=== PATIENT | female | born 1955 | race Caucasian/White ===

== ENCOUNTER 2020-03-14 11:28 | Outpatient (REF) | payer BC, SELFPAY | END 2020-03-14 11:29 | disposition home or self-care (01) | LOC: HO.LAB 11:28 | PROVIDERS: Visit Provider Internal Medicine | DX: Z20.822 Contact with and (suspected) exposure to COVID-19 (principal) | CPT/HCPCS: 36415; C9803; U0003 ==

== ENCOUNTER 2020-09-10 16:14 | Outpatient (REF) | payer BC, SELFPAY ==
--- NOTE | ~2020-09-10 | MM_ITS ---
EXAMINATION: MM SCREENING DIGITAL BREAST TOMOSYNTHESIS, BILATERAL CLINICAL INFORMATION: Screening. Asymptomatic. The lifetime risk of breast cancer based on the Tyrer-Cuzick Model is 10%. COMPARISON: Mammography: 02/02/2019, 12/31/2017, 12/10/2016 TECHNIQUE: Digital mammography is performed in craniocaudal and mediolateral oblique views along with computer-aided detection (CAD). Digital breast tomosynthesis is performed in implant-displaced craniocaudal and implant-displaced mediolateral oblique views along with computer-aided detection (CAD). Synthesized 2D images are generated from the tomosynthesis. FINDINGS: There are scattered areas of fibroglandular density (ACR BI-RADS breast composition Category b). Breast tissue composition borders on heterogeneously dense in the upper outer quadrants. Parenchymal pattern is similar to prior studies. There is no developing density or interval mass or architectural abnormality. There are scattered benign punctate calcifications again seen, greater on right. Biopsy clip marker again noted posterior 12:00 left breast. The implant contours are smooth and similar to prior studies. There are no significant changes. MM/MM tomosynthesis screen imp BI IMPRESSION: No mammographic evidence of malignancy. ASSESSMENT: BI-RADS 2: Benign RECOMMENDATION: Routine annual mammography screening. This patient's information was entered into a reminder system with a target due date for their next mammogram.
== END 2020-09-10 16:15 | disposition home or self-care (01) ==
LOC: HO.MAMMO 16:14
PROVIDERS: Visit Provider Physician Assistant Medical
DX: Z12.31 Encounter for screening mammogram for malignant neoplasm of breast (principal)
CPT/HCPCS: 77063; 77067

== ENCOUNTER 2021-05-15 07:49 | Outpatient (REF) | payer BC, SELFPAY ==
--- NOTE | ~2021-05-15 | XR_ITS ---
EXAMINATION: XR PELVIS XR HIP, LEFT CLINICAL INFORMATION: Hip pain COMPARISON: Radiographs lumbar spine 05/22/2014 TECHNIQUE: AP view pelvis is performed along with AP and frog-lateral projections left hip for a total of 3 views. FINDINGS: The pelvis shows no fracture or destructive process. There is no diastases SI joints or pubis. Spurring from the left lateral iliac crest is again noted. There are scattered punctate calcified phleboliths again seen in the pelvis. Bowel gas unremarkable. Left hip shows no fracture, dislocation, or arthropathy. No joint narrowing or erosive change or chondrocalcinosis. XR/XR pelvis 1-2V IMPRESSION: 1. No hip joint narrowing or erosive change. 2. Old spurring left lateral iliac crest similar to 2015.
--- NOTE | ~2021-05-15 | XR_ITS ---
EXAMINATION: XR PELVIS XR HIP, LEFT CLINICAL INFORMATION: Hip pain COMPARISON: Radiographs lumbar spine 05/22/2014 TECHNIQUE: AP view pelvis is performed along with AP and frog-lateral projections left hip for a total of 3 views. FINDINGS: The pelvis shows no fracture or destructive process. There is no diastases SI joints or pubis. Spurring from the left lateral iliac crest is again noted. There are scattered punctate calcified phleboliths again seen in the pelvis. Bowel gas unremarkable. Left hip shows no fracture, dislocation, or arthropathy. No joint narrowing or erosive change or chondrocalcinosis. XR/XR hip LT min 2V IMPRESSION: 1. No hip joint narrowing or erosive change. 2. Old spurring left lateral iliac crest similar to 2015.
== END 2021-05-15 07:50 | disposition home or self-care (01) ==
LOC: HO.HOSX 07:49
PROVIDERS: Visit Provider Physician Assistant
DX: M25.552 Pain in left hip (principal)
CPT/HCPCS: 72170; 73502

== ENCOUNTER 2023-01-08 13:29 | Outpatient (AMB) | payer BC, SELFPAY ==
--- NOTE | 2023-01-08 13:36 | MHC.OFFVIS ---
Intake Vital Signs 01/08/23 13:37 Height 5 ft 1 in Weight 169 lb 12.095 oz BMI 32.1 BP 118/70 Blood Pressure Location Lt brachial Position Sitting Pulse 79 Pulse Source Pulse Oximeter Pulse Oximetry (%) 95 Oxygen Delivery Method Room Air Intake Visit Reasons: Pulmonary nodule Elastic Cutter Required: No Allergies No Known Allergies Allergy (Verified 01/08/23 13:39) HPI HPI Comments History of Present Illness Details The patient is here for pulmonary evaluation. The patient is a 67 year woman with a known history of sarcoidosis diagnosed around 15 years ago in addition to chronic cough. Apparently she was evaluated by ENT [place] and had a biopsy-proven bout of sarcoidosis. She was placed on steroids at that point. She also follow with a local drop wire builder at [facility]. The patient had CT scan demonstrating nodular densities. She has been on and off prednisone for many years. Now currently off. She developed issues with osteoporosis now she is concerned about her potential bone health. Therefore she is minimizing any steroid therapy. She has had a cough. The cough is been significant with significant spasms resulting in choking. Nonproductive in nature and denies any wheezing. She has been evaluated by Allergy immunology. She was placed on QVAR which appears to be helping. She does not use it frequently. She also has done about she therapy that she does use on a regular basis. Recently she did add budesonide to the therapy by the recommendations of her ENT doctor and her symptoms have improved. She has tried Tessalon Perles which are not very helpful. Cough syrup with codeine is very helpful for her. I did review her PFTs that she had back in 2017 without any evidence of any obstruction. The patient also had a CT scan of the chest September 2022 at [facility] which I compared to her previous CT scan from 2017. She does have evidence of nodular densities in the left lower lobe area which appears to be very similar to previous. In addition to that she does have some minimal airspace disease or scarring in the right upper lobe that has not changed. Has some slight haziness in the basilar areas suggesting some atelectasis. Does not appear to be related to pneumonitis. And is not in the right location for sarcoid. Patient has significant calcifications of her mediastinal hilar lymph nodes which is very likely to be related to her sarcoid history. [facility] Medical History (Updated 01/08/23 @ 20:01 by Diomedes Muñoz MD) Lymphadenopathy, mediastinal Sinusitis Pulmonary nodules Sarcoidosis Surgical History (Updated 05/15/21 @ 11:19 by Bianca Dan CMA) History of cholecystectomy History of tonsillectomy Social History (Updated 01/08/23 @ 13:40 by DORETHA Gallagher) Patient Tobacco Use Status: Never used Tobacco Current occupational status: employed Review of Systems Const Denies fever(s) Eyes Denies change in vision ENT Reports nasal congestion, Reports nasal discharge and Reports post nasal drip Card Denies chest pain and Denies dyspnea on exertion Resp Denies chest congestion, Reports cough, Denies hemoptysis, Denies dyspnea on exertion and Denies wheezing GI Denies abdominal pain Musc Reports no additional complaints Skin/Breast Reports rash Neuro Reports no additional complaints Tyler/Lymph Denies lymphadenopathy Aller/Immun Denies wheezing Physical Exam Vital Signs: Last Vital Signs Pulse 79 01/08/23 13:37 BP 118/70 01/08/23 13:37 Pulse Ox 95 01/08/23 13:37 Oxygen Delivery Method Room Air 01/08/23 13:37 BMI result Body Mass Index 32.1 Const General: comfortable HEENT Head: Yes normocephalic Neck Neck: Yes supple Chest Chest palpation & inspection: normal inspection of the chest Resp Effort & Inspection: normal respiratory effort Auscultation: clear to auscultation bilaterally, no crackles, no rales, no rhonchi and no wheezes Cardio Rate: regular rate Rhythm: regular rhythm Heart sounds: S1 normal heart sound present and S2 normal heart sound present GI Palpation (GI): Soft to palpation Skin General skin exam: no rashes or lesions noted Extrem General: Yes no clubbing, cyanosis or edema Results Reviewed Results Reviewed: personally reviewed CT chest 09/2022 with hilar and mediastinal calcified LN and airspace disease, similar to 2017, PFTs 2017 no obstruction/restriction Assessment & Plan Assessment & Plan (1) Sinusitis: Code(s): J32.9 - Chronic sinusitis, unspecified Qualifiers: Sinusitis location: unspecified location Chronicity: chronic Qualified Code(s): J32.9 - Chronic sinusitis, unspecified (2) Pulmonary nodules: Code(s): R91.8 - Other nonspecific abnormal finding of lung field (3) Sarcoidosis: Comment: calcified mediastinal/hilar lymphadenopathy with evidence of airspace disease Code(s): D86.9 - Sarcoidosis, unspecified (4) Lymphadenopathy, mediastinal: Code(s): R59.0 - Localized enlarged lymph nodes Plan Bloodwork continue QVAR nasal rinsing cough medicine PFTs F/U 2-3 months Orders: Orders Basic Metabolic Panel Today D86.9 - Sarcoidosis, unspecified, J32.9 - Chronic sinusitis, unspecified, R91.8 - Other nonspecific abnormal finding of lung field FINN Reflex Titer and Pattern Today D86.9 - Sarcoidosis, unspecified, J32.9 - Chronic sinusitis, unspecified, R91.8 - Other nonspecific abnormal finding of lung field Angiotensin Converting Enzyme Today D86.9 - Sarcoidosis, unspecified, J32.9 - Chronic sinusitis, unspecified, R91.8 - Other nonspecific abnormal finding of lung field Liver Panel Today D86.9 - Sarcoidosis, unspecified, J32.9 - Chronic sinusitis, unspecified, R91.8 - Other nonspecific abnormal finding of lung field Complete Blood Count Auto Diff Today D86.9 - Sarcoidosis, unspecified, J32.9 - Chronic sinusitis, unspecified, R91.8 - Other nonspecific abnormal finding of lung field Erythrocyte Sedimentation Rate Today D86.9 - Sarcoidosis, unspecified, J32.9 - Chronic sinusitis, unspecified, R91.8 - Other nonspecific abnormal finding of lung field Cyclic Citrullinated Peptide Today D86.9 - Sarcoidosis, unspecified, J32.9 - Chronic sinusitis, unspecified, R91.8 - Other nonspecific abnormal finding of lung field T Spot TB Today D86.9 - Sarcoidosis, unspecified, J32.9 - Chronic sinusitis, unspecified, R91.8 - Other nonspecific abnormal finding of lung field Medications: New codeine-guaifenesin 10-100 mg/5 mL 10 mL PO Q6H 10 days PRN 300 mL 0RF cough Coding Level of Care Code New Pt Level 5 (21527) Diagnoses Chronic sinusitis, unspecified location J32.9 Sinusitis location: unspecified location Chronicity: chronic Pulmonary nodules R91.8 Sarcoidosis D86.9 Lymphadenopathy, mediastinal R59.0 Time Spent (min) 60
[2023-01-08 13:37] VITALS: BP 118/70; PULSE 79; O2SAT 95; BMI 32.1
== END 2023-01-08 14:02 | disposition home or self-care (01) ==
PROVIDERS: PCP Family Medicine; Referring Provider Physician Assistant Medical; Visit Provider Hospitalist
DX: J32.9 Chronic sinusitis, unspecified (principal); R91.8 Other nonspecific abnormal finding of lung field; D86.9 Sarcoidosis, unspecified; R59.0 Localized enlarged lymph nodes
CPT/HCPCS: 99205

== ENCOUNTER 2023-01-08 13:29 | Outpatient (REF) | payer BC, SELFPAY ==
[2023-01-08 14:41] LABS: MANUAL DIFF FLAG NO
[2023-01-08 15:16] LABS: Basophils Percent Auto 0.6 % (0-2); Eosinophils Absolute Auto 0.1 X10*3/uL (0.0-0.4); Hematocrit 39.2 % (37.0-47.0); Hemoglobin 13.5 g/dl (12.0-16.0); Imm Gran Abs Auto 0.01 X10*3/uL (0.00-0.03); Imm Gran Pct Auto 0.2 % (0.0-0.4); Lymphocytes Absolute Auto 1.7 X10*3/uL (1.2-4.9); Lymphocytes Percent Auto 31.4 % (20-40); Mean Corpuscular HGB Conc 34.4 g/dl (31.0-35.0); Mean Corpuscular Hemoglobin 29.9 pg (27.0-33.0); Mean Corpuscular Volume 86.7 fL (80.0-98.0); Mean Platelet Volume 11.5 fL (9.4-12.3); Monocytes Absolute Auto 0.5 X10*3/uL (0.1-1.2); Monocytes Percent Auto 8.8 % (2-11); Neutrophils Absolute Auto 3.1 x10*3/uL (2.0-8.3); Platelet Count 212 X10*3/uL (160-400); Red Blood Count 4.52 X10*6/uL (4.20-5.50); Red Cell Distribution Width 12.5 % (11.0-16.0); White Blood Count 5.4 X10*3/uL (4.8-10.8)
[2023-01-08 15:39] LABS: Alanine Aminotransferase 19 U/L (0-31); Albumin Level 4.2 g/dL (3.5-5.0); Alkaline Phosphatase 76 U/L (39-117); Anion Gap 12 (12-20); Aspartate Amino Transferase 20 U/L (5-31); Bilirubin Direct < 0.2 mg/dL (0.0-0.5); Bilirubin Total 0.2 mg/dL (0.0-1.0); Blood Urea Nitrogen 15 mg/dL (9-16); Calcium 9.6 mg/dL (8.4-10.2); Carbon Dioxide 27 mmol/L (22-29); Chloride 106 mmol/L (96-108); Estimated Glomerular Filt Rate > 60; Glucose Random 98 mg/dL (60-115); Sodium 141 mmol/L (135-145); Total Protein 6.5 g/dL (6.5-8.0)
[2023-01-08 16:13] LABS: Erythrocyte Sedimentation Rate 5 MM/HR (0-20)
[2023-01-09 16:18] LABS: Cyclic Citrullinated Peptide <16 UNITS
[2023-01-10 21:24] LABS: TS Negative Control Passed; TS Panel A 0; TS Panel B 0; TS Positive Control Passed; TSpotTB Negative (Negative)
[2023-01-12 12:08] LABS: Anti Nuclear Antibody Screen NEGATIVE (NEGATIVE)
[2023-01-13 05:19] LABS: Angiotensin Converting Enzyme 31 U/L (9-67)
== END 2023-01-08 13:30 | disposition home or self-care (01) ==
LOC: HO.LAB 13:29
PROVIDERS: PCP Family Medicine; Referring Provider Physician Assistant Medical; Visit Provider Hospitalist
DX: Z11.1 Encounter for screening for respiratory tuberculosis (principal); J32.9 Chronic sinusitis, unspecified; R91.8 Other nonspecific abnormal finding of lung field; D86.9 Sarcoidosis, unspecified; R59.0 Localized enlarged lymph nodes
CPT/HCPCS: 36415; 80048; 80076; 82164; 85025; 85652; 86038; 86200; 86481

== ENCOUNTER 2024-09-19 08:53 | Outpatient (AMB) | payer MEDICARE, BC, SELFPAY ==
[2024-09-19 08:57] VITALS: BP 140/80; PULSE 75; O2SAT 98; BMI 32.3
--- NOTE | 2024-09-19 08:57 | MHC.OFFVIS ---
Vital Signs 09/19/24 08:57 Height 5 ft 1 in Weight 170 lb 13.732 oz BMI 32.3 BP 140/80 H Blood Pressure Location Lt brachial Position Sitting Pulse 75 Pulse Source Pulse Oximeter Pulse Oximetry (%) 98 Oxygen Delivery Method Room Air Intake Visit Reasons: pulm nodule Steeping Press Tender Required: No Accompanied by: Self / Same As Patient Allergies No Known Allergies Allergy (Verified 09/19/24 08:59) HPI Comments Details: The patient is a 69 year woman with a known history of sarcoidosis diagnosed around 15 years ago in addition to chronic cough. Apparently she was evaluated by ENT [place] and had a biopsy-proven bout of sarcoidosis. She was placed on steroids at that point. She also follow with a local building serviceman at [facility]. The patient had CT scan demonstrating nodular densities. She has been on and off prednisone for many years. Now currently off. She developed issues with osteoporosis now she is concerned about her potential bone health. Therefore she is minimizing any steroid therapy. She has had a cough. The cough is been significant with significant spasms resulting in choking. Nonproductive in nature and denies any wheezing. She has been evaluated by Allergy immunology. She was placed on QVAR which appears to be helping. She does not use it frequently. She also has done about she therapy that she does use on a regular basis. Recently she did add budesonide to the therapy by the recommendations of her ENT doctor and her symptoms have improved. She has tried Tessalon Perles which are not very helpful. Cough syrup with codeine is very helpful for her. I did review her PFTs that she had back in 2017 without any evidence of any obstruction. The patient also had a CT scan of the chest September 2022 at [facility] which I compared to her previous CT scan from 2017. She does have evidence of nodular densities in the left lower lobe area which appears to be very similar to previous. In addition to that she does have some minimal airspace disease or scarring in the right upper lobe that has not changed. Has some slight haziness in the basilar areas suggesting some atelectasis. Does not appear to be related to pneumonitis. And is not in the right location for sarcoid. Patient has significant calcifications of her mediastinal hilar lymph nodes which is very likely to be related to her sarcoid history. 09/19/2024 the patient is here for a pulmonary follow-up visit. She has had history of sarcoidosis for many years for pulmonary nodules. Her last CT scan was back in 2019 05 with significant nodular densities and lymphadenopathy. The patient should get another CAT scan at this time. She continues with a cough moderate severity. She does not like to take a lot of medications. Therefore she is okay with some of the cough. The cough medication does help her though codeine cough syrup she knows she needs to take very sparingly and primarily just at nighttime to settle the cough. She can use the [employer]on Efrain during the daytime. I did give her a good Rx card in case her insurance does not cover them. Meantime she does have significant sleep issues. She has significant daytime drowsiness with an [place] score elevated 11/24. She has had documented apneic episodes of snoring. The patient needs to have a home sleep study at this time. The patient will follow-up after her CAT scan and sleep study to review the results. [facility] Medical History (Updated 09/19/24 @ 09:23 by Diomedes Muñoz MD) EDUIN (obstructive sleep apnea) Lymphadenopathy, mediastinal Sinusitis Pulmonary nodules Sarcoidosis Surgical History (Updated 05/15/21 @ 11:19 by Bianca Dan [facility]) History of cholecystectomy History of tonsillectomy Social History Patient Tobacco Use Status: Never used Tobacco Current occupational status: employed Review of Systems Const Denies fever(s) Eyes Denies change in vision ENT Reports nasal congestion, Reports nasal discharge and Reports post nasal drip Card Denies chest pain and Denies dyspnea on exertion Resp Denies chest congestion, Reports cough, Denies hemoptysis, Denies dyspnea on exertion and Denies wheezing GI Denies abdominal pain Musc Reports no additional complaints Skin/Breast Reports rash Neuro Reports no additional complaints Tyler/Lymph Denies lymphadenopathy Aller/Immun Denies wheezing Physical Exam Vital Signs: Last Vital Signs Pulse 75 09/19/24 08:57 BP 140/80 H 09/19/24 08:57 Pulse Ox 98 09/19/24 08:57 Oxygen Delivery Method Room Air 09/19/24 08:57 BMI result Body Mass Index 32.3 Const General: comfortable HEENT Head: Yes normocephalic Neck Neck: Yes supple Chest Chest palpation & inspection: normal inspection of the chest Resp Effort & Inspection: normal respiratory effort Auscultation: clear to auscultation bilaterally, no crackles, no rales, no rhonchi and no wheezes Cardio Rate: regular rate Rhythm: regular rhythm Heart sounds: S1 normal heart sound present and S2 normal heart sound present GI Palpation (GI): Soft to palpation Skin General skin exam: no rashes or lesions noted Extrem General: Yes no clubbing, cyanosis or edema Assessment & Plan Assessment & Plan (1) Sinusitis: Code(s): J32.9 - Chronic sinusitis, unspecified Category: Medical Qualifiers: Chronicity: chronic Sinusitis location: unspecified location Qualified Code(s): J32.9 - Chronic sinusitis, unspecified (2) Pulmonary nodules: Code(s): R91.8 - Other nonspecific abnormal finding of lung field Category: Medical (3) Sarcoidosis: Comment: calcified mediastinal/hilar lymphadenopathy with evidence of airspace disease Code(s): D86.9 - Sarcoidosis, unspecified Category: Medical (4) Lymphadenopathy, mediastinal: Code(s): R59.0 - Localized enlarged lymph nodes Category: Medical (5) EDUIN (obstructive sleep apnea): Code(s): G47.33 - Obstructive sleep apnea (adult) (pediatric) Category: Medical Plan CT chest Home PSG nasal rinsing cough medicine F/U 2-3 months Orders: Orders CT chest wo IV con Today D86.9 - Sarcoidosis, unspecified, R91.8 - Other nonspecific abnormal finding of lung field RT home sleep study Today G47.33 - Obstructive sleep apnea (adult) (pediatric) Medications: New codeine-guaifenesin 10-100 mg/5 mL 10 mL PO Q6H PRN 300 mL 0RF cough 10 days benzonatate 200 mg PO BID PRN 30 caps 5RF cough 30 days Coding Level of Care Code Est Pt Level 4 (53061) Complex EM visit Add On G2211 Diagnoses Chronic sinusitis, unspecified location J32.9 Chronicity: chronic Sinusitis location: unspecified location Pulmonary nodules R91.8 Sarcoidosis D86.9 Lymphadenopathy, mediastinal R59.0 EDUIN (obstructive sleep apnea) G47.33 Time Spent (min) 17
--- OUTSIDE RECORDS SUMMARY | 2024-09-19 09:04 | XMS_ITS | Encounter Summary ---
Author Organization [facility] Address [address] [place] [address] Care Team Providers Care Bow Repairer Custom Name Role Phone Donya Lewis PA-C Primary Care Provi damir Delluk Marcello Abbott DO Unavailable [phone] Encounter Details Date Type Department Care Team (Late st Contact Info) Description 04/05/2024 Scanned Document [facility] [address] [place] [address] Allergy And Immunology, Scan Social History Tobacco Use Types Packs/Day Years Used Date Smoking Tobacco: Never Smokeless Tobacco: Never Alcohol Use Standard Drinks/Week Comments Never 0 (1 standard drink = 0.6 oz pur e alcohol) PHQ-2 Answer Date Recorded PHQ-2 Total Score 4 03/30/2024 Comments No Sex and Gender Information Value Date Recorded Sex Assigned at Female 05/24/2024 11:20 AM EDT Legal Sex Female 10:42 AM EDT Gender Identity Female 05/24/2024 11:20 AM EDT Sexual Orientation Not on file documented as of this encounter Plan of Treatment Upcoming Encounters Date Type Department Care Team (Late st Contact Info) Description 10/05/2024 4:00 PM EDT Office Visit [address] [phone] Donya Lewis PA-C [address] [place] [address] 02/06/2025 11:15 AM EST Consult [facility] [address] [place] [address] Donya Lewis PA-C [address] [place] [address] Quentin Gan DO [address] [facility] [address] [place] [address] documented as of this encounter Visit Diagnoses Not on filedocumented in this encounter Care Teams Bow Repairer Custom Relationship Specialty Start Date End Date Donya Lewis PA-C [address] [place] [address] PCP - General Internal Medicine 07/09/23 Marcello Rehman DO [address] [facility] [address] [place] [address] Referring Provider Allergy and Immunology-Scan 07/09/23 Greg Corbett Physician Endocrinology 06/29/23 documented as of this encounter
--- OUTSIDE RECORDS SUMMARY | 2024-09-19 09:04 | XMS_ITS | Clinical Summary ---
Author Organization [facility] it Address [address] [place] [address] Care Team Providers Care Veterans Services Specialist Name Role Phone Donya Lewis Primary Care Provider [phone] Medical History Medical History Date Comments Sarcoidosis DX:Sarcoidosis Vertigo DX:Vertigo Social History Tobacco Use Types Packs/Day Years Used Date Smoking Tobacco: Never Smokeless Tobacco: Never Alcohol Use Standard Drinks/Week Comments Not Currently 0 (1 standard drink = 0.6 oz pur e alcohol) Comments Unknown Sex and Gender Information Value Date Recorded Sex Assigned at Not on file Legal Sex Female 7:52 AM EST Gender Identity Not on file Sexual Orientation Not on file Obstetrics History Plan of Treatment Health Maintenance Due Date Last Done Comments Breast Cancer Screening 1955 DTaP,Tdap,and Td Vaccines (1 - Tdap) 1976 Pneumococcal Vaccine: 50+ Ye ars (1 of 1 - PCV) 08/11/2007 Zoster Vaccines (1 of 2) 08/11/2007 Colorectal Cancer Screening: Colonoscopy 02/02/2022 Hepatitis C Screening 02/02/2022 Osteoporosis Screening (Bone Density Screening) 02/02/2022 Social Influencers of Health Screening 02/02/2022 Falls Risk Assessment 2022 COVID-19 Vaccine (1 - 2023-2 5 season) 2023 Depression Screening 03/02/2024 Influenza Vaccine (#1) 2024 RSV Immunization Adult Patie nts (1 - 1-dose 75+ series) 2032 HIB Vaccines Aged Out No longer eligi ble based on patient's age to complete this topic HPV Vaccines Aged Out No longer eligi ble based on patient's age to complete this topic Hepatitis A Vaccines Aged Out No long er eligible based on patient's age to complete this topic Hepatitis B Vaccines Aged Out No long er eligible based on patient's age to complete this topic IPV Vaccines Aged Out No longer eligi ble based on patient's age to complete this topic MMR Vaccines Aged Out No longer eligi ble based on patient's age to complete this topic Meningococcal ACWY Vaccine Aged Out N o longer eligible based on patient's age to complete this topic Meningococcal B Vaccine Aged Out No l onger eligible based on patient's age to complete this topic RSV Immunization Patients Un damir 20 months Aged Out No longer eligible b ased on patient's age to complete this topic Varicella Vaccines Aged Out No longer eligible based on patient's age to complete this topic Care Teams Veterans Services Specialist Relationship Specialty Start Date End Date Donya Lewis PA [address] [place] [address] [address] [place] [address] PCP - General Physician Hris Administrator 01/17/21
--- OUTSIDE RECORDS SUMMARY | 2024-09-19 09:04 | XMS_ITS | Encounter Summary ---
Author Organization [facility] Address [address] [facility] [address] [place] [address] Phone Care Team Providers Care Telesales Professional Name Role Phone Pcp, Not Required Primary Care Provider Unavaila ble Encounter Details Date Type Department Care Team (Late st Contact Info) Description 07/13/2020 Procedure Pass [facility] [place] [address] [place] [address] Social History Tobacco Use Types Packs/Day Years [...] on file documented as of this encounter Visit Diagnoses Not on filedocumented in this encounter Care Teams Telesales Professional Relationship Specialty Start Date End Date Pcp, Not Required [address] [place] [address] PCP - General 10/24/19 documented as of this encounter Additional Source Comments The information contained in this document represents components of the legal health record. It is not the complete legal health record.[facility]
--- OUTSIDE RECORDS SUMMARY | 2024-09-19 09:04 | XMS_ITS | Clinical Summary ---
Author Organization [facility] Address [address] [place] [address] Care Team Providers Care Used Car Sales Manager Name Role Phone Donya Lewis Primary Care Provider [phone] Allergies No known active allergies Medications Medication Sig Dispensed Refills Start Date End Date Status albuterol 108 (90 Base) MCG/ACT inhaler Inhale 2 puffs into the lungs every 6 (six) hours as needed for wheezing. 18 g 0 01/17/2021 Active Spacer/Aero-Holding Chambers (INSPIREASE, SPACER,) MISC device Inhale 1 each into the lungs as needed. 1 each 0 01/17/2021 Active benzonatate (TESSALON) 100 MG capsule Take 1 capsule (100 mg total) by mouth 3 (three) times a day as needed for cough. 20 capsule 0 01/17/2021 Active predniSONE (DELTASONE) tablet 10 mg Prednisone 10 mg tablets - Disp. #40 - Si tabs daily x 3 days; 4 tabs daily x 3 days; 2 tabs daily x 3 days; 1 tab daily x 3 days 40 tablet 0 01/26/2021 Active Active Problems No known active problems Social History Tobacco Use Types Packs/Day Years Used Date Smoking Tobacco: Never Smokeless Tobacco: Never Alcohol Use Standard Drinks/Week Comments Not Currently 0 (1 standard drink = 0.6 oz pur e alcohol) Sex and Gender Information Value Date Recorded Sex Assigned at Female 01/17/2021 1:31 PM EST Gender Identity Not on file Sexual Orientation Not on file Job Start Date Occupation Industry Not on file Not on file Not on file Last Filed Vital Signs Vital Sign Reading Time Taken Comments Blood Pressure 149/81 01/26/2021 6:15 PM EST Pulse 85 01/26/2021 6:15 PM EST Temperature 36.9 C (98.5 F) 01/26/2021 6:15 PM EST Respiratory Rate 20 01/26/2021 6:15 PM EST Oxygen Saturation 97% 01/26/2021 6:15 PM EST Inhaled Oxygen Concentration - - Weight 79.4 kg (175 lb) 01/26/2021 6:15 PM EST Height 160 cm (5' 3 ) 01/26/2021 6:15 PM EST Body Mass Index 31 01/26/2021 6:15 PM EST Plan of Treatment Health Maintenance Due Date Last Done Comments Hepatitis C Screening 1955 COVID-19 Vaccine (#1) 02/09/1958 Depression Screening 1969 Preventative Health Evaluation 08/11/1975 DTap / Tdap / Td (1 - Tdap) 1976 Colon Cancer Screening (Colonoscopy) 2002 Breast Cancer Screening (Mammogram) 08/11/2007 Shingrix-Zoster Vaccine (1 of 2) 08/11/2007 Fall Risk Assessment 2022 Osteoporosis Screening (DEXA Scan) 2022 Pneumococcal Vaccine (1 of 1 - PCV) 2022 Influenza Vaccine (#1) 2024 RSV Adult > 60+ Yrs or Pregn ant (1 - 1-dose 75+ series) 2032 Hepatitis B Vaccines Aged Out No long er eligible based on patient's age to complete this topic RSV Ped < 20 months Aged Out No longe r eligible based on patient's age to complete this topic Care Teams Used Car Sales Manager Relationship Specialty Start Date End Date Donya Lewis PA PCP - General Physician Cottrell Blower 01/17/21
== END 2024-09-19 09:33 | disposition home or self-care (01) ==
PROVIDERS: PCP Family Medicine; Visit Provider Hospitalist
DX: J32.9 Chronic sinusitis, unspecified (principal); R91.8 Other nonspecific abnormal finding of lung field; D86.9 Sarcoidosis, unspecified; R59.0 Localized enlarged lymph nodes; G47.33 Obstructive sleep apnea (adult) (pediatric)
CPT/HCPCS: 99214; G2211

== ENCOUNTER → 2024-09-19 08:53 | Outpatient (BNVA) | payer BC, SELFPAY | PROVIDERS: PCP Family Medicine; Visit Provider Hospitalist | DX: R59.0 Localized enlarged lymph nodes (principal); J32.9 Chronic sinusitis, unspecified; R91.8 Other nonspecific abnormal finding of lung field; G47.33 Obstructive sleep apnea (adult) (pediatric) | CPT/HCPCS: 99212 ==

== ENCOUNTER → 2024-11-14 08:08 | Outpatient (REF) | payer MEDICARE, SELFPAY ==
--- OUTSIDE RECORDS SUMMARY | 2024-11-14 08:37 | XMS_ITS | Clinical Summary ---
Author Organization [facility] Address [address] [place] [address] Care Team Providers Care Roundhouse Supervisor Name Role Phone Donya Lewis PA-C Primary Care Provi damir Marcello Rehman DO Unavailable [phone] Allergies No known active allergies Medications albuterol (PROVENTIL HFA; VENTOLIN HFA) 108 (90 Base) MCG/ACT inhaler 1 Active valACYclovir (VALTREX) 1000 MG tabletIndicati ons:H/O cold sores Take 2 tablets (2,000 mg total) by mouth 2 (two) times a day as needed (for). 8 tablet 3 4 Active escitalopram (LEXAPRO) 10 MG tabletIndicati ons:Anxiety TAKE 1 TABLET BY MOUTH EVERY DAY 30 tablet 5 5 Active Trelegy Ellipta 100-62.5-25 MCG/ACT inhaler Inhale 1 puff daily. 5 Active hydrOXYzine HCl (ATARAX) 25 MG tabletIndicati ons:Anxiety TAKE 1 TABLET BY MOUTH NIGHTLY NEEDED FOR ANXIETY. 90 tablet 1 5 Active hydrOXYzine HCl (ATARAX) 25 MG tabletIndicati ons:Anxiety TAKE 1 TABLET BY MOUTH NIGHTLY NEEDED FOR ANXIETY. 90 tablet 1 5 11/02/19 25 Discontinued Active Problems Problem Noted Date Diagnosed Date Mild persistent asthma without complication 05/01 Sarcoidosis of lung 05/13/2024 Primary insomnia 03/30/2024 Morbid obesity 03/30/2024 IFG (impaired fasting glucose) 07/23/2023 Sarcoidosis 07/09/2023 Pulmonary nodule 07/09/2023 Overview (07/09/2023): Seen on CAT scan 2 cm lobulated nodule left lower lobe; following with Dr. Ramírez and a physician out in [place]. Migraines 07/09/2023 Anxiety 12/17/2022 07/09/2023 Essential hypertension 12/17/2022 Major depressive disorder 12/17/20222023 Osteoporosis 12/17/2022 07/09/2023 Encounters Date Type Department Care Team Description 10/29/[address] [address] Donya Lewis PA-C Anxiety 08/16/2024 Orders Only [address] [address] Donya Lewis PA-C Primary insomnia (Primary Dx); Snoring; Fatigue, unspecified type 08/15/[address] [address] Donya Lewis PA-C from Last 3 Months Immunizations Immunization Administration Dates Next Due Pneumococcal Conjugate 20-Valent 07/09/2023 Family History Medical History Relation Name Comments Stroke Father Colon cancer Maternal Aunt Colon cancer Maternal Uncle Cancer, breast Sister Relation Name Status Comments Father Maternal Aunt Alive Maternal Uncle Alive Sister Social History Tobacco Use Types Packs/Day Years Used Date Smoking Tobacco: Never Smokeless Tobacco: Never Tobacco Cessation:Counseling Given: Not Answered Alcohol Use Standard Drinks/Week Comments Never 0 (1 standard drink = 0.6 oz pur e alcohol) [facility] Utilities Answer Date Recorded In the past 12 months has e electric, gas, oil, or water company threatened to shut off services in your home? No 05/24/2024 Social Connection and Isolation Panel [NHANES] A nswer Date Recorded In a typical week, how many times do you talk on the phone with family, friends, or neighbors? Three times a week 05/24/2024 Frequency of Social Gatherin gs with Friends and Family Not on file 05/24/2024 Attends Sikhism Services Not on file 05/24 Active Member of Clubs or Organizations Not on f ile 05/24/2024 Attends Club or Organization Meetings Not on mainor e 05/24/2024 Marital Status Not on file 05/24/2024 AUDIT-C Answer Date Recorded Q1: How often do you have a drink containing alcohol? Monthly or less 05/24/2024 Q2: How many drinks containi ng alcohol do you have on a typical day when you are drinking? Patient does not drink Frequency of Binge Drinking Not on file 05/01 PHQ-2 Answer Date Recorded PHQ-2 Total Score 4 03/30/2024 Hunger Vital Sign Answer Date Recorded Within the past 12 months, y ou worried that your food would run out before you got the money to buy more. Patient declined Within the past 12 months, t he food you bought just didn't last and you didn't have money to get more. Patient declined PRAPARE - Transportation Answer Date Re corded In the past 12 months, has l ack of transportation kept you from medical appointments or from getting medications? No 05/01 In the past 12 months, has l ack of transportation kept you from meetings, work, or from getting things needed for daily living? No 05/24/2024 Housing Stability Vital Sign Answer Wero e Recorded In the last 12 months, was t here a time when you were not able to pay the mortgage or rent on time? No 05/24/2024 Number of Times Moved in the Last Year Not on fi le 05/24/2024 At any time in the past 12 m [facility], were you homeless or living in a mcc (including now)? No 05/24/2024 Education Answer Date Recorded What is the highest level of school you have completed or the highest degree you have received? 12th grade 05/24/2024 Comments No Sex and Gender Information Value Date Recorded Sex Assigned at Female 05/24/2024 11:20 AM EDT Legal Sex Female 10:42 AM EDT Gender Identity Female 05/24/2024 11:20 AM EDT Sexual Orientation Not on file Last Filed Vital Signs Vital Sign Reading Time Taken Comments Blood Pressure 128/70 05/26/2024 4:01 PM EDT Pulse 83 05/26/2024 4:01 PM EDT Temperature 36.2 C (97.1 F) 05/26/2024 4:01 PM EDT Respiratory Rate 16 05/26/2024 4:01 PM EDT Oxygen Saturation 97% 05/26/2024 4:01 PM EDT Inhaled Oxygen Concentration - - Weight 78.3 kg (172 lb 9.6 oz) 05/26/2024 4:01 P M EDT Height 154.9 cm (5' 1 ) 05/26/2024 4:01 PM EDT Body Mass Index 32.61 05/26/2024 4:01 PM EDT Plan of Treatment Upcoming Encounters Date Type Department Care Team (Late st Contact Info) Description 12/08/2024 11:30 AM EDT Office Visit [address] [place] [address] Donya Lewis PA-C [address] [place] [address] 02/06/2025 11:15 AM EST Consult [facility] Pulmonary [address] [address] Donya Lewis PA-C [address] [place] [address] Quentin Gan, DO [address] [facility] [address] [place] [address] Health Maintenance Due Date Last Done Comments Advance Care Planning 1955 Hepatitis C Virus Screening 1955 Physical 08/11/1975 DTaP/Tdap/Td Vaccines (1 - Tdap) 1976 Zoster (Shingles) Vaccine (1 of 2) 08/11/2007 RSV Vaccine 60 years and older and Patients (1 - Risk 60-74 years 1-dose series) 2017 Influenza Vaccine 09/30/2024 COVID-19 Vaccine (3 - 2024-2 6 season) 2024 05/31/2020, 05/10/2020 DXA Bone Density (Females,Ages 65 and older) 11/17/2024 11/17/2022 (Previously Completed) Mammogram 11/17/2024 11/17/2022 (Previously Completed) Annual Wellness Visit 03/31/2025 03/30/2024 Colonoscopy 08/02/2033 08/03/2023 (Previously Completed) Pneumococcal Vaccines 50+ Completed 07/09/2023 Hepatitis B Vaccines Aged Out No long er eligible based on patient's age to complete this topic Insurance BLUE CROSS [employer] MEDICARE Care Teams Roundhouse Supervisor Relationship Specialty Start Date End Date Donya Lewis PA-C [address] [place] [address] PCP - General Internal Medicine 07/09/23 Marcello Rehman DO [address] [place] [address] [address] [place] [address] Referring Provider Allergy and Immunology-Scan 07/09/23 Greg Corbett Physician Endocrinology 06/29/23
--- OUTSIDE RECORDS SUMMARY | 2024-11-14 08:37 | XMS_ITS ---
[facility] Name [facility] History of Medication Use Medication Directions Dispensed Refills Start Date End Date Stat us Qvar RediHaler 80 MCG/ACT Aerosol, Breath Activate inhaler Inhale 2 puffs (160 mcg total) 2 (two) times a day. 05/07/2023 active Spacer/Aero-Holding Chambers (INSPIREASE, SPACER,) MISC device Inhale 1 each into the lungs as needed. 01/17/2021 active Problems Problem Status Onset Date Problem Type Date of Resolution Source Dysphagia active EncounterDiagnosisAct [facility] Essential hypertension active 2022-12-17 ProblemAct [facility] Anxiety active 2022-12-17 ProblemAct [facility] Sarcoidosis active 2023-07-09 ProblemAct [facility] Pulmonary nodule active 2023-07-09 ProblemAct [facility] IFG (impaired fasting glucose) active 2023-07-23 ProblemAct [facility] Migraines active 2023-07-09 ProblemAct [facility] Major depressive disorder active 2022-12-17 ProblemAct [facility] Osteoporosis active 2022-12-17 ProblemAct [facility] Immunizations Vaccine Date Source Lot Number Status Pneumococcal Conjugate 20-Valent 07/09/2023 [facility] [id number] completed Encounters Encounter Type Encounter Reason Primary Diagnosis Location Date Ambulatory Snoring Snoring [facility] 05/26/2024 Ambulatory Encounter for general adult medical examination without abnormal findings Encounter for general adult medical examination without abnormal findings [facility] 03/30/2024 Ambulatory Diarrhea, unspecified Diarrhea, unspecified [facility] 09/11/2023 Ambulatory Encounter for screening for malignant neoplasm of colon Encounter for screening for malignant neoplasm of colon [facility] 07/09/2023 Ambulatory Dysphagia, unspecified Dysphagia, unspecified [facility] 06/04/2023 Ambulatory Dizziness and giddiness [facility] 03/28/2021 Ambulatory Benign paroxysma l vertigo, right ear [facility] 12/03/2020 Care Team Organization Name Specialty Phone Email Start Date End Da te [facility] PIOTR Primary Care 07/09/2023 [facility] MARVIN SALDAÑA [facility]2023 [facility] Primary Care 06/04/2023 09/13/2024 [facility] NO PCP Primary Care 06/03/2023 [facility] STEPHANIA KNIGHT Primary Care 03/28/2021 06/25/2024 [facility] STEPHANIA KNIGHT Primary Care 11/19/2020 12/03/2020
--- OUTSIDE RECORDS SUMMARY | 2024-11-14 08:37 | XMS_ITS | Clinical Summary ---
Author Organization [facility] it Address [address] [place] [address] Care Team Providers Care Golf Cart Mechanic Name Role Phone Donya Lewsi Primary Care Provider [phone] Medical History Medical History Date Comments Sarcoidosis [...] Health Screening 02/02/2022 Falls Risk Assessment 2022 Depression Screening 03/02/2024 COVID-19 Vaccine ( - 2023-2 5 season) 2024 Influenza Vaccine (#1) 2024 RSV Immunization Adult [...] age to complete this topic Care Teams Golf Cart Mechanic Relationship Specialty Start Date End Date Donya Lewis PA [address] [place] [address] [address] [place] [address] PCP - General Physician Chief Investment Officer 01/17/21
--- OUTSIDE RECORDS SUMMARY | 2024-11-14 08:37 | XMS_ITS | Continuity of Care Document ---
Author Organization [facility] Address [address] [facility] [address] [place] [address] Phone [phone] Care Team Providers Care Canvas Shop Laborer Name Role Phone Donya Lewis Care Team Information Re ceiver [phone] Problems Active Problems Provider Date Anxiety Greg Corbett M.D. Onset: 1 Essential hypertension Greg Corbett M.D. O nset: 12/17/2022 Loss of hair Greg Corbett M.D. Onset: 1 Weight increased Greg Corbett M.D. Onset: 12/17/2022 Major depressive disorder Yuly Busch Onset: 12/17/2022 Osteoporosis Greg Corbett M.D. Onset: 1 Social History Type Date Description Comments Sex Female Sex Unknown Tobacco Use Start: Unknown Never Smoked Cigarettes ETOH Use Occasionally consumes alcoho l Allergies and adverse reactions Description No Known Drug Allergies Medications Active Medications SIG Qnty Indications Order ing Provider Date Guaifenesin-Dixefmx36 0-10mg/5ML Solution Take 5 To 10 Milliliters By Oral Route Every 4 Hours as Needed For Cough Cruz Tijerina NP Escitalopram [id number] Tablets Take 1 Tablet By Mouth Every Day Donya Lewis, P.A. Zvkmfjxrkhz220eq Capsules Take 1 Capsule By Mouth Three Times A Day as Needed For Cough Cruz Tijerina NP Vital Signs Date Vital Result Comment 01/28/2023 2:51pm Height 61 inches 5'1 Weight 168.00 lb BMI (Body Mass Index) 31.7 kg/m2 Results Test Acquired Date Facility Test Result H/L Range Note Calcium 02/11/2023 [facility] Calcium 9.5 mg/dL (8.6-10.5 ) Creatinine 02/11/2023 [facility] Creatinine 0.8 mg/dL (0.5-1.0) Estimated GFR Creatinine 78 ML/MIN/1.73 M2 1 Albumin 02/11/2023 [facility] Albumin 4.4 GM/DL (3.4-4.8) BUN 02/11/2023 [facility] BUN 16 mg/dL (8-23) Period & Volume 12/29/2022 [facility] Urine Collection Period 24 HRS Volume 2100 MLS Lchux-Zo-Ynrzj 12/29/2022 [facility] Creatinine, Urine MG/DL 42.3 mg/dL Creatinine Ur GM/24HR 0.9 GM/24HR (0.72-1.5 ) Eykkteg-Db-Fsp nt 12/29/2022 [facility] Calcium, Urine, MG/DL 4.7 mg/dL Calcium, Urine GM/24HR 0.10 GM/24HR (0.05-0.3 0) N-Telopeptide Cross Links, Urine 12/27/2022 [facility] Cross Linked N-Telopeptides 352 2 Creat, Urine 77.4 3 N-Telopeptide/C re at Ratio 51 4 NTX Interpretaion Comment 5 PTH, Intact 12/26/2022 [facility] PTH, Intact 50 pg/mL (15-65) N-Telopeptide Cross Links, Urine 12/26/2022 [facility] [address]-7 Test Cancelled, <SEE NOTE> 6 Phosphorus 12/26/2022 [facility] Phosphorus 3.7 mg/dL (2.5-4.5) PTH, Intact 12/26/2022 [facility] PTH, Intact Test Cancelled, <SEE NOTE> 7 1 Creatinine based est imated glomerular filtration (eGFR) in adults is calculated using the National Kidney Foundation recommended 2020 CKD-EPI equation. Estimates GFR from serum creatinine, age and sex. 2 Reference range: Not Estab. Unit: nmol BCE Test performed at [address] [address] 3 Reference range: Not Estab. Unit: mg/dL [facility], [address] [place] [address] 4 Reference range: 0 t o 89 Unit: nM BCE/mM Cr 5 (NOTE) The N-telopeptide and Creatinine are used to calculate the N-telo/Creat. Ratio which is referred to as NTx . Suggested guidelines for the clinical use of NTx are as follows: 1. Menopausal Women not on Hormone Replacement Therapy (HRT): Women with a baseline NTx value >38 are at significant risk for a decrease in bone mineral density (BMD) after 1 year compared to women on HRT. The probability of a decline in BMD increases with NTx value as follows: (1): Baseline NTx Probability of Decrease in BMD 18- 38 1.4 p EQ 0.28 38- 51 2.5 p EQ 0.03 51- 67 3.8 p EQ 0.0006 67-188 17.3 p EQ 0.0001 2. Menopausal Women Receiving Antiresorptive Therapy: The probability that treatment is effective after three months is increased when the measured NTx value is <or EQ 38 nM BCE/mM GENERAL PEDIATRICIAN, or NTx has decreased >or EQ 30% from baseline.[1] 3. Patients with Paget's Disease of Bone: The probability that treatment is effective after one month is increased when the measured NTx value is within the reference range, or NTx has decreased >or EQ 30% from baseline.[2] 1. Mckinley CH, Abdullahi NH, Cuauhtemoc GS, et al. Am J Med, 102:29-37,1997. (1):M757, 1996. 2. Bone H, Tabitha J, et al. J Bone Min Res.11(1):M757,1996 [facility], [address] [place] [address] 6 Test Cancelled, orde r entry error 7 Test Cancelled, orde r entry error Medical Devices Description No Information Available Encounters Type Date Location Provider Dx Diagnosis Office Visit 01/28/2023 2:45p Main Office Greg Corbett M.D. M81.0 Age-related osteoporosis w/o current pathological fracture Assessments Date Code Description Provider 02/11/2023 M81.0 Age-related oste oporosis without current pathological fracture Greg Corbett M.D. 01/28/2023 M81.0 Osteoporosis Greg urena M.D. Plan of Treatment 01/28/2023 - Greg Corbett M.D.* M81.0 Osteoporosis* New Orders:* Reclast 5MG Injection IV 15 Minutes Yearly, Scheduled: 02/24/23 Functional Status Description No Information Available Mental Status Description No Information Available Referrals Description No Information Available
--- OUTSIDE RECORDS SUMMARY | 2024-11-14 08:37 | XMS_ITS | Encounter Summary ---
Author Organization [facility]ly [facility] Address [address] [place] [address] Care Team Providers Care Associate Professor Of Law Name Role Phone Donya Lewis PA-C Primary Care Provi damir DellMarcello DO Unavailable [phone] Encounter Details Date Type Department Care Team (Late st Contact Info) Description 06/07/[address] [phone] Donya Lewis PA-C [address] [place] [address] Social History Tobacco Use Types Packs/Day Years Used Date Smoking Tobacco: Never Smokeless Tobacco: Never Alcohol Use Standard Drinks/Week Comments Never 0 (1 standard drink = 0.6 oz pur e alcohol) [facility] Utilities Answer Date Recorded In the past 12 months has [employer], gas, oil, or water [employer] threatened to shut off services in your home? No 05/24/2024 Social Connection and Isolation Panel [NHANES] A nswer Date Recorded In a typical week, how many times do you talk on the phone with family, friends, or neighbors? Three times a week 05/24/2024 Frequency of Social Gatherin gs with Friends and Family Not on file 05/24/2024 Attends Anabaptist Services Not on file 05/24 Active Member [...] any time in the past 12 m [facility], were you homeless or living in a senior care (including now)? No 05/24/2024 Education Answer Date [...] on file documented as of this encounter Miscellaneous Notes * Telephone Encounter - Fariha Ronquillo MA - 06/09/2024 9:36 AM EDT Noted. * Telephone Encounter - Bee Gonzalez MA - 06/08/2024 4:04 PM EDT Pt called again looking for results. Advised pt we will call once provider reviews it * Telephone Encounter - Fariha Ronquillo MA - 06/08/2024 12:07 PM EDT Please look back on messages from 05/27/24 we had to change orders. * Telephone Encounter - Bee Gonzalez MA - 06/07/2024 2:20 PM EDT Pt is asking for a call to review CT results. It is under media, pt went to [facility]. documented in this encounter Plan of Treatment Upcoming Encounters Date Type Department Care Team (Late st Contact Info) Description 12/08/2024 11:30 AM EDT Office Visit [address] [place] [address] Donya Lewis PA-C [address] [place] [address] 02/06/2025 11:15 AM EST Consult [facility] Pulmonary [place] [address] [place] [address] Donya Lewis PA-C [address] [place] [address] Quentin Gan, DO [address] [place] [address] documented as of this encounter Visit Diagnoses Not on filedocumented in this encounter Care Teams Associate Professor Of Law Relationship Specialty Start Date End Date Donya Lewis PA-C [address] [place] [address] PCP - General Internal Medicine 07/09/23 Marcello Rehman DO [address] [place] [address] Referring Provider Allergy and Immunology-Scan 07/09/23 Greg Corbett Physician Endocrinology 06/29/23 documented as of this encounter
--- OUTSIDE RECORDS SUMMARY | 2024-11-14 08:37 | XMS_ITS | Clinical Summary ---
Author Organization [facility] Address [address] [place], [place] [address] Care Team Providers Care Dead Mail Checker Name Role Phone Donya Lewis Primary Care Provider [phone] Allergies No known active allergies Medications Medication [...] age to complete this topic Care Teams Dead Mail Checker Relationship Specialty Start Date End Date Donya Lewis PA PCP - General Physician Seamless Tube Drawer 01/17/21
--- OUTSIDE RECORDS SUMMARY | 2024-11-14 08:37 | XMS_ITS | Encounter Summary ---
Author Organization [facility]ly [facility] Address [address] [place] [address] Care Team Providers Care Trailer Driver Name Role Phone Donya Lewis PA-C Primary Care Provi damir Marcello Rehman DO Unavailable Encounter Details Date Type Department Care Team (Late st Contact Info) Description 07/23/2023 Scanned Document [facility] PRIMARY CARE SCAN Primary Care, Scan Social History Tobacco Use Types Packs/Day Years Used Date Smoking Tobacco: Never Smokeless Tobacco: Never Alcohol Use Standard Drinks/Week Comments Never 0 (1 standard drink = 0.6 oz pur e alcohol) PHQ-2 Answer Date Recorded PHQ-2 Total Score 3 07/09/2023 Comments Unknown Sex and Gender Information Value Date Recorded Sex Assigned at Female 05/24/2024 11:20 AM EDT Legal Sex Female 10:42 AM EDT Gender Identity Female 05/24/2024 11:20 AM EDT Sexual Orientation Not on file documented as of this encounter Plan of Treatment Upcoming Encounters Date Type Department Care Team (Late st Contact Info) Description 12/08/2024 11:30 AM EDT Office Visit [address] [place] [phone] Donya Lewis PA-C [address] [place] [address] 02/06/2025 11:15 AM EST Consult [facility] Pulmonary [place] [address] [place] [address] Donya Lewis PA-C [address] [place] [address] Quentin Gan DO 85 [facility] 923 [place] [address] documented as of this encounter Visit Diagnoses Not on filedocumented in this encounter Care Teams Trailer Driver Relationship Specialty Start Date End Date Donya Lewis PA-C [address] [place] [address] PCP - General Internal Medicine 07/09/23 Marcello Rehman DO [address] [place] [address] [address] [place] [address] Referring Provider Allergy and Immunology-Scan 07/09/23 Greg Corbett Physician Endocrinology 06/29/23 documented as of this encounter
--- OUTSIDE RECORDS SUMMARY | 2024-11-14 08:37 | XMS_ITS | Encounter Summary ---
Author Organization [facility] Address [address] [place] [address] Care Team Providers Care Personnel Representative Name Role Phone Donya Lewis PA-C Primary Care Provi damir Marcello Rehman DO Unavailable [phone] Encounter Details Date Type Department Care Team (Late st Contact Info) Description 04/05/2024 Scanned Document [facility] PULMONOLGY SCAN Pulmonary, Scan Social History Tobacco Use Types Packs/Day [...] Description 12/08/2024 11:30 AM EDT Office Visit [address] [place] [address] Donya Lewis PA-C [address] [place] [address] 02/06/2025 11:15 AM EST Consult [facility] Pulmonary [address] [place] [address] Donya Lewis PA-C [address] [place] [address] Quentin Gan DO 85 [facility] 923 [place] [address] documented as of this encounter Visit Diagnoses Not on filedocumented in this encounter Care Teams Personnel Representative Relationship Specialty Start Date End Date Donya Lewis PA-C [address] [place] [address] PCP - General Internal Medicine 07/09/23 Marcello Rehman DO [address] [place] [address] [address] [place] [address] Referring Provider Allergy and Immunology-Scan 07/09/23 Greg Corbett Physician Endocrinology 06/29/23 documented as of this encounter
--- OUTSIDE RECORDS SUMMARY | 2024-11-14 08:37 | XMS_ITS | Encounter Summary ---
Author Organization [facility] Address [address] [place] [address] Care Team Providers Care Medical Csr Name Role Phone Donya Lewis PA-C Primary Care Provi damir DellMarcello DO Unavailable [phone] Encounter Details Date Type Department Care Team (Late st Contact Info) Description 04/05/2024 Scanned Document [facility] [address] [place] [address] Allergy And Immunology, Scan Social History Tobacco [...] Description 12/08/2024 11:30 AM EDT Office Visit [address] [phone] Donya Lewis PA-C [address] [place] [address] 02/06/2025 11:15 AM EST Consult [facility] Pulmonary [place] 100 [place] [address] Donya Lewis PA-C [address] [place] [address] Quentin Gan DO 85 [facility] 923 [place] [address] documented as of this encounter Visit Diagnoses Not on filedocumented in this encounter Care Teams Medical Csr Relationship Specialty Start Date End Date Donya Lewis PA-C [address] [place] [address] PCP - General Internal Medicine 07/09/23 Marcello Rehman DO 269 [facility] [address] [place] [address] Referring Provider Allergy and Immunology-Scan 07/09/23 Greg Corbett Physician Endocrinology 06/29/23 documented as of this encounter
== END ==
LOC: HO.SL 08:08
PROVIDERS: PCP Family Medicine; Visit Provider Hospitalist
DX: G47.33 Obstructive sleep apnea (adult) (pediatric) (principal)
CPT/HCPCS: 95806

== ENCOUNTER → 2024-11-14 08:23 | Outpatient (BNV) | payer MEDICARE, SELFPAY | PROVIDERS: PCP Family Medicine; Visit Provider Internal Medicine | DX: G47.33 Obstructive sleep apnea (adult) (pediatric) (principal) | CPT/HCPCS: 95806 ==

== ENCOUNTER 2024-12-02 14:12 | Outpatient (AMB) | payer MEDICARE, SELFPAY ==
--- OUTSIDE RECORDS SUMMARY | 2020-04-18 01:00 | XMS_ITS | Encounter Summary ---
Author Organization [facility] Address [address] [facility] [address] [place] [address] Phone Care Team Providers Care Boarder Hand Name Role Phone Pcp, Not Required Primary Care Provider Unavaila ble Encounter Details Date Type Department Care Team ([facility] st Contact Info) Description 04/18/2020 Hospital Encounter [facility] OUTSIDE [address] [place] [phone] Dionna Veloz MD [address] [place] [address] [email or web address] Social History Tobacco Use Types Packs/Day Years Used Date Smoking Tobacco: Never Smokeless Tobacco: Never Alcohol Use Standard Drinks/Week Comments Never 0 (1 standard drink = 0.6 oz pur e alcohol) Education Answer Date Recorded Are you interested in more education? Not on mainor e 06/29/2022 Are you concerned about learning? Not on file 06/29/2022 No 06/29/2022 No 06/29/2022 Digital Access Answer Date Recorded No 07/27/2022 No 07/27/2022 Reliable internet access at home? Not on file 07/27/2022 Device with a working camera? Not on file Comments Unknown Sex and Gender Information Value Date Recorded Sex Assigned at Not on file Legal Sex Female 5:00 PM EST Gender Identity Not on file Sexual Orientation Not on file documented as of this encounter Plan of Treatment Not on file documented as of this encounter Procedures Procedure Name Priority Date/Time Associated Diagnosis Comments CT FACE OUTSIDE (NO INTERPRETATION) Routine 04/18/2020 12:00 AM EST documented in this encounter Results * CT Face Outside (No Interpretation) (04/18/2020 12:00 AM EST) Narrative [facility] INTERFACES - 06/29/2024 9:42 AM EDT This study is for PACS storage only and not for interpretation. us Dionna Veloz MD IMG OUTSIDE IMAGING W/OUT IN TERPRETATION Final Result [facility] INTERFACES documented in this encounter Visit Diagnoses Not on filedocumented in this encounter Care Teams Boarder Hand Relationship Specialty Start Date End Date Pcp, Not Required [address] [place] [id number] PCP - General 10/24/19 documented as of this encounter Additional Source Comments The information contained in this document represents components of the legal health record. It is not the complete legal health record.[facility]
--- OUTSIDE RECORDS SUMMARY | 2024-06-03 | XMS_ITS | Encounter Summary ---
Author Organization [facility] Address [address] [facility] [address] [place] [phone] Phone Care Team Providers Care Dietary Aide Cook Name Role Phone Pcp, Not Required Primary Care Provider Unavaila ble Encounter Details Date Type Department Care Team (Late st Contact Info) Description 06/03/2024 Hospital Encounter [facility] OUTSIDE [address] [place] [id number] Dionna Veloz MD [address] [place] [address] [email or web address] Social History Tobacco Use Types Packs/Day Years [...] Comments CT FACE OUTSIDE (NO INTERPRETATION) Routine 06/03/2024 12:00 AM EDT documented in this encounter Results * CT Face Outside (No Interpretation) (06/03/2024 12:00 AM EDT) Narrative [facility] IMG INTERFACES - 06/29/2024 9:43 AM EDT This study is for PACS storage only and not for interpretation. Dionna Veloz MD IMG OUTSIDE IMAGING W/OUT IN TERPRETATION Final Result [facility] INTERFACES documented in this encounter Visit Diagnoses Not on filedocumented in this encounter Care Teams Dietary Aide Cook Relationship Specialty Start Date End Date Pcp, Not Required [address] [place] [phone] PCP - General 10/24/19 documented as of this encounter Additional Source Comments The information contained in this document represents components of the legal health record. It is not the complete legal health record.[facility]
--- OUTSIDE RECORDS SUMMARY | 2024-12-02 14:20 | XMS_ITS | Encounter Summary ---
Author Organization [facility] Address [address] [place] [address] Phone Care Team Providers Care Lamps Tester And Inspector Name Role Phone Pcp, Not Required Primary Care Provider Unavaila ble Reason for Visit * Reason Onset Date Comments apptmt 01/01/2021 Encounter Details Date Type Department Care Team (Late st Contact Info) Description 01/01/2021 Telephone MARIA T Otolaryngology General [place] [address] [place] [address] Kristin Ritchie 800 [place] [address] [email or web address]. U apptmt Social History Tobacco Use Types Packs/Day Years [...] on filedocumented in this encounter Care Teams Lamps Tester And Inspector Relationship Specialty Start Date End Date Pcp, Not Required [address] [place] [address] PCP - General 10/24/19 documented as of this encounter Additional Source Comments The information contained in this document represents components of the legal health record. It is not the complete legal health record.[facility]
--- OUTSIDE RECORDS SUMMARY | 2024-12-02 14:20 | XMS_ITS | Clinical Summary ---
Author Organization [facility] Address [address] [place] [address] Care Team Providers Care Marketing Communication Manager Name Role Phone Donya Lewis Primary Care Provider [phone] Medical History Medical History Date Comments Sarcoidosis [...] Last Done Comments Breast Cancer Screening 1957 Colorectal Cancer Screening: Colonoscopy 1957 DTaP,Tdap,and Td Vaccines (1 - Tdap) 1976 Pneumococcal Vaccine: 50+ Ye ars (1 of 1 - PCV) 08/11/2007 Zoster Vaccines (1 of 2) 08/11/2007 Hepatitis C Screening 02/02/2022 Osteoporosis Screening (Bone [...] age to complete this topic Care Teams Marketing Communication Manager Relationship Specialty Start Date End Date Donya Lewis PA [address] [place] [address] [address] [place] [address] PCP - General Physician Mud Analysis Well Logging Captain 01/17/21
--- OUTSIDE RECORDS SUMMARY | 2024-12-02 14:20 | XMS_ITS | Encounter Summary ---
Author Organization [facility] Address [address] [place] [address] Phone Care Team Providers Care Rn Document Improvement Name Role Phone Pcp, Not Required Primary Care Provider Unavaila ble Reason for Visit * Reason Onset Date Comments Appointment 12/28/2020 Encounter Details Date Type Department Care Team (Late st Contact Info) Description 12/28/2020 Telephone MARIA T Otolaryngology General [place] [address] [place] [address] [address] [facility] [place] [address] [email or web address] U Appointment Social History Tobacco Use Types Packs/Day Years [...] on filedocumented in this encounter Care Teams Rn Document Improvement Relationship Specialty Start Date End Date Pcp, Not Required [address] [place] [address] PCP - General 10/24/19 documented as of this encounter Additional Source Comments The information contained in this document represents components of the legal health record. It is not the complete legal health record.[facility]
--- OUTSIDE RECORDS SUMMARY | 2024-12-02 14:20 | XMS_ITS | Encounter Summary ---
Author Organization [facility] Address [address] [place] [address] Care Team Providers Care Structural Steel Detailer Name Role Phone Donya Lewis PA-C Primary Care Provi damir Marcello Rehman DO Unavailable [phone] Encounter Details Date Type Department Care Team (Late st Contact Info) Description 04/05/2024 Scanned Document [facility] PULMONOLGY SCAN Pulmonary, Scan Social History Tobacco [...] Description 12/08/2024 11:30 AM EDT Office Visit [address] [place] [address] Donya Lewis PA-C 100 [place] [address] 02/06/2025 11:15 AM EST Consult [facility] Pulmonary [address] [place] [address] Donya Lewis PA-C [address] [place] [address] Quentin Gan DO 85 [facility] 923 [place] [address] documented as of this encounter Visit Diagnoses Not on filedocumented in this encounter Care Teams Structural Steel Detailer Relationship Specialty Start Date End Date Donya Lewis PA-C 100 [place] [address] PCP - General Internal Medicine 07/09/23 Marcello Rehman DO [address] [place] [address] [address] [place] [address] Referring Provider Allergy and Immunology-Scan 07/09/23 Greg Corbett Physician Endocrinology 06/29/23 documented as of this encounter
--- OUTSIDE RECORDS SUMMARY | 2024-12-02 14:20 | XMS_ITS | Clinical Summary ---
Author Organization [facility] Address [address] [place] [address] Care Team Providers Care Case Technician Name Role Phone Donya Lewis Primary Care Provider [phone] Allergies No known active allergies Medications Medication [...] age to complete this topic Care Teams Case Technician Relationship Specialty Start Date End Date Donya Lewis PA PCP - General Physician Iron Launder Operator 01/17/21
--- OUTSIDE RECORDS SUMMARY | 2024-12-02 14:20 | XMS_ITS | Encounter Summary ---
Author Organization [facility] Address [email or web address] [place] [address] [place] [address] Phone Care Team Providers Care Learning And Development Analyst Name Role Phone Pcp, Not Required Primary Care Provider Unavaila ble Encounter Details Date Type Department Care Team (Late st Contact Info) Description 07/13/2020 Procedure Pass MARIA T Imaging - [place] Main [place] [address] [place] [address] Social History Tobacco Use Types Packs/Day Years [...] on filedocumented in this encounter Care Teams Learning And Development Analyst Relationship Specialty Start Date End Date Pcp, Not Required [address] [place] [address] PCP - General 10/24/19 documented as of this encounter Additional Source Comments The information contained in this document represents components of the legal health record. It is not the complete legal health record.[facility]
--- OUTSIDE RECORDS SUMMARY | 2024-12-02 14:20 | XMS_ITS | Encounter Summary ---
Author Organization [facility] Address [address] [place] [address] Phone Care Team Providers Care Oriental Medicine Practitioner Name Role Phone Pcp, Not Required Primary Care Provider Unavaila ble Encounter Details Date Type Department Care Team (Late st Contact Info) Description 01/01/2021 Telephone MARIA T Otolaryngology General LW 800 [place] [address] Kristin Ritchie 800 [facility] [place] [address] [email or web address]. U Social History Tobacco Use Types Packs/Day Years [...] on filedocumented in this encounter Care Teams Oriental Medicine Practitioner Relationship Specialty Start Date End Date Pcp, Not Required [address] [place] [address] PCP - General 10/24/19 documented as of this encounter Additional Source Comments The information contained in this document represents components of the legal health record. It is not the complete legal health record.[facility]
--- OUTSIDE RECORDS SUMMARY | 2024-12-02 14:20 | XMS_ITS | Encounter Summary ---
Author Organization [facility] Address [address] [place] [address] Care Team Providers Care Building Manager Name Role Phone Donya Lewis PA-C Primary Care Provi damir [place]uk Marcello Abbott DO Unavailable [phone] Encounter Details Date Type Department Care Team (Late st Contact Info) Description 04/05/2024 Scanned Document [facility]AL [facility] [address] [place] [address] Allergy And Immunology, Scan Social History Tobacco [...] Description 12/08/2024 11:30 AM EDT Office Visit [address] [phone] Donya Lewis PA-C [address] [place] [address] 02/06/2025 11:15 AM EST Consult [facility] Pulmonary [place] 100 [place] [address] Donya Lewis PA-C [address] [place] [address] Quentin Gan DO 85 [facility] 923 [place] [address] documented as of this encounter Visit Diagnoses Not on filedocumented in this encounter Care Teams Building Manager Relationship Specialty Start Date End Date Donya Lewis PA-C 100 [place] [address] PCP - General Internal Medicine 07/09/23 Marcello Rehman DO 269 [facility] [address] [place] [address] Referring Provider Allergy and Immunology-Scan 07/09/23 Greg Corbett Physician Endocrinology 06/29/23 documented as of this encounter
--- OUTSIDE RECORDS SUMMARY | 2024-12-02 14:20 | XMS_ITS | Encounter Summary ---
Author Organization [facility] Address [address] [place] [address] Care Team Providers Care Radiology Services Manager Name Role Phone Donya Lewis PA-C Primary Care Provi damir DellMarcello DO Unavailable [phone] Encounter Details Date Type Department Care Team (Late st Contact Info) Description 06/07/[address] [phone] Donya Lewis PA-C [address] [place] [address] Social History Tobacco Use Types Packs/Day Years Used Date Smoking Tobacco: Never Smokeless Tobacco: Never Alcohol Use Standard Drinks/Week Comments Never 0 (1 standard drink = 0.6 oz pur e alcohol) [facility] Utilities Answer Date Recorded In the past 12 months has [employer], gas, oil, or water [employer] threatened to shut off services in your home? No 05/24/2024 Social Connection and Isolation Panel [NHANES] A nswer Date Recorded In a typical week, how many times do you talk on the phone with family, friends, or neighbors? Three times a week 05/24/2024 Frequency of Social Gatherin gs with Friends and Family Not on file 05/24/2024 Attends Hindu Services Not on file 05/24 Active Member [...] any time in the past 12 m [facility], were you homeless or living in a halfway (including now)? No 05/24/2024 Education Answer Date [...] It is under media, pt went to [facility]. documented in this encounter Plan of Treatment Upcoming Encounters Date Type Department Care Team (Late st Contact Info) Description 12/08/2024 11:30 AM EDT Office Visit [address] [place] [address] Donya Lewis PA-C [address] [place] [address] 02/06/2025 11:15 AM EST Consult [facility] Pulmonary [place] [address] [place] [address] Donya Lewis PA-C [address] [place] [address] Quentin Gan, DO [address] [place] [address] documented as of this encounter Visit Diagnoses Not on filedocumented in this encounter Care Teams Radiology Services Manager Relationship Specialty Start Date End Date Donya Lewis PA-C [address] [place] [address] PCP - General Internal Medicine 07/09/23 Marcello Rehman DO [address] [place] [address] Referring Provider Allergy and Immunology-Scan 07/09/23 Greg Corbett Physician Endocrinology 06/29/23 documented as of this encounter
--- OUTSIDE RECORDS SUMMARY | 2024-12-02 14:20 | XMS_ITS | Clinical Summary ---
Author Organization [facility] Address [address] [place] [address] Care Team Providers Care Sales Appointment Coordinator Name Role Phone Donya Lewis PA-C Primary Care Provi damir Marcello Rehman DO Unavailable [phone] Allergies No known active allergies Medications albuterol (PROVENTIL HFA; VENTOLIN HFA) 108 (90 Base) MCG/ACT inhaler 02/25/2021 Act shanna valACYclovir (VALTREX) 1000 MG tabletIndicatio ns:H/O cold sores Take 2 tablets (2,000 mg total) by mouth 2 (two) times a day as needed (for). 8 tablet 3 02/11/2024 Active escitalopram (LEXAPRO) 10 MG tabletIndicatio ns:Anxiety TAKE 1 TABLET BY MOUTH EVERY DAY 30 tablet 5 05/16/2024 Active Trelegy Ellipta 100-62.5-25 MCG/ACT inhaler Inhale 1 puff daily. 05/21/2024 Active hydrOXYzine HCl (ATARAX) 25 MG tabletIndicatio ns:Anxiety TAKE 1 TABLET BY MOUTH NIGHTLY NEEDED FOR ANXIETY. 90 tablet 1 11/01/2024 Active Active Problems Problem Noted Date Diagnosed Date Mild persistent asthma without complication 05/01 Sarcoidosis of lung 05/13/2024 Primary insomnia 03/30/2024 Morbid obesity 03/30/2024 IFG (impaired fasting glucose) 07/23/2023 Sarcoidosis 07/09/2023 Pulmonary nodule 07/09/2023 Overview (07/09/2023): Seen on CAT scan 2 cm lobulated nodule left lower lobe; following with Dr. Ramírez and a physician out in [place]. Migraines 07/09/2023 Anxiety 12/17/2022 07/09/2023 Essential hypertension 12/17/2022 Major depressive disorder 12/17/20222023 Osteoporosis 12/17/2022 07/09/2023 Encounters Date Type Department Care Team Description 12/02/[address] [place] [phone] Donya Lewis PA-C 10/29/2024 Refill [facility] 100 [facility] [address] [place] [address] Donya Lewis PA-C Anxiety from Last 3 Months Immunizations Immunization Administration [...] drink = 0.6 oz pur e alcohol) [facility] Utilities Answer Date Recorded In the past 12 months has e [employer], gas, oil, or water [employer] threatened to shut off services in your home? No 05/24/2024 Social Connection and Isolation Panel [NHANES] A nswer Date Recorded In a typical week, how many times do you talk on the phone with family, friends, or neighbors? Three times a week 05/24/2024 Frequency of Social Gatherin gs with Friends and Family Not on file 05/24/2024 Attends Spiritism Services Not on file 05/24 Active Member [...] any time in the past 12 m [facility], were you homeless or living in [...] Description 12/08/2024 11:30 AM EDT Office Visit [facility] 100 [facility] [address] [place] [address] Donya Lewis PA-C 100 [place] [address] 02/06/2025 11:15 AM EST Consult [facility] Pulmonary [place] 100 [place] [address] Donya Lewis PA-C [address] [place] [address] Quentin Gan, DO [address] [address] [place] [address] Health Maintenance Due Date Last Done Comments [...] patient's age to complete this topic Insurance [facility] [place] [id number] Care Teams Sales Appointment Coordinator Relationship Specialty Start Date End Date Donya Lewis PA-C [address] [place] [address] PCP - General Internal Medicine 07/09/23 Marcello Rehman DO [address] [place] [address] Referring Provider Allergy and Immunology-Scan 07/09/23 Greg Corbett Physician Endocrinology 06/29/23
--- OUTSIDE RECORDS SUMMARY | 2024-12-02 14:20 | XMS_ITS | Encounter Summary ---
Author Organization [facility] Address [address] [place] [address] Care Team Providers Care Purchasing/Receiving Name Role Phone Donya Lewis PA-C Primary Care Provi damir Marcello Rehman DO Unavailable [phone] Encounter Details Date Type Department Care Team (Late st Contact Info) Description 07/23/2023 Scanned Document [facility] PRIMARY CARE SCAN Primary Care, Scan [...] Description 12/08/2024 11:30 AM EDT Office Visit [address] [place] [address] Donya Lewis PA-C 100 [place] [address] 02/06/2025 11:15 AM EST Consult [facility] Pulmonary [place] 100 [place] [address] Donya Lewis PA-C [address] [place] [address] Quentin Gan DO 85 [facility] 923 [place] [address] documented as of this encounter Visit Diagnoses Not on filedocumented in this encounter Care Teams Purchasing/Receiving Relationship Specialty Start Date End Date Donya Lweis PA-C 100 [place] [address] PCP - General Internal Medicine 07/09/23 Marcello Rehman DO [address] [place] [address] [address] [place] [address] Referring Provider Allergy and Immunology-Scan 07/09/23 Greg Corbett Physician Endocrinology 06/29/23 documented as of this encounter
--- OUTSIDE RECORDS SUMMARY | 2024-12-02 14:20 | XMS_ITS | Continuity of Care Document ---
Author Organization [facility] Address [address] [facility] [address] [place] [address] Phone [phone] Care Team Providers Care Supervisor Particleboard Name Role Phone Donya Lewis Care Team Information Re ceiver [phone] Problems Active Problems Provider Date Anxiety Greg [...] SIG Qnty Indications Order ing Provider Date Guaifenesin-Wfvrlgt93 0-10mg/5ML Solution Take 5 To 10 Milliliters By Oral Route Every 4 Hours as Needed For Cough Cruz Tijerina NP Escitalopram [id number] Tablets Take 1 Tablet By Mouth Every Day Donya Lewis, P.A. [id number] Capsules Take 1 Capsule By Mouth Three Times A Day as Needed For Cough Cruz Tijerina NP Vital Signs Date Vital Result Comment 01/28/2023 2:51pm Height 61 inches 5'1 Weight 168.00 lb BMI (Body Mass Index) 31.7 kg/m2 Results Test Acquired Date Facility Test Result H/L Range Note Calcium 02/11/2023 [facility] Calcium 9.5 mg/dL (8.6-10.5 ) Creatinine 02/11/2023 [facility] Creatinine 0.8 mg/dL (0.5-1.0) Estimated GFR Creatinine 78 ML/MIN/1.73 M2 1 Albumin 02/11/2023 [facility] Albumin 4.4 GM/DL (3.4-4.8) BUN 02/11/2023 [facility] BUN 16 mg/dL (8-23) Period & Volume 12/29/2022 [facility] Urine Collection Period 24 HRS Volume 2100 MLS Jrwxb-Xj-Zbnxc 12/29/2022 [facility] Creatinine, Urine MG/DL 42.3 mg/dL Creatinine Ur GM/24HR 0.9 GM/24HR (0.72-1.5 ) Djgfozt-Va-Zfd nt 12/29/2022 [facility] Calcium, Urine, MG/DL 4.7 mg/dL Calcium, Urine GM/24HR 0.10 GM/24HR (0.05-0.3 0) N-Telopeptide Cross Links, Urine 12/27/2022 [facility] Cross Linked N-Telopeptides 352 2 Creat, Urine 77.4 3 N-Telopeptide/C re at Ratio 51 4 NTX Interpretaion Comment 5 PTH, Intact 12/26/2022 [facility] PTH, Intact 50 pg/mL (15-65) N-Telopeptide Cross Links, Urine 12/26/2022 [facility] 11407-2 Test Cancelled, <SEE NOTE> 6 Phosphorus 12/26/2022 [facility] Phosphorus 3.7 mg/dL (2.5-4.5) PTH, Intact 12/26/2022 [facility] PTH, Intact Test Cancelled, <SEE NOTE> 7 1 Creatinine based est imated glomerular filtration (eGFR) in adults is calculated using the National Kidney Foundation recommended 2020 CKD-EPI equation. Estimates GFR from serum creatinine, age and sex. 2 Reference range: Not Estab. Unit: nmol BCE Test performed at [address] [address] 3 Reference range: Not Estab. Unit: mg/dL [facility], [address] [place] [address] 4 Reference range: 0 t o 89 [...] value is <or EQ 38 nM BCE/mM BIOMETRICS TECHNICIAN, or NTx has decreased >or EQ 30% [...] J Bone Min Res.11(1):M757,1996 [facility] at [facility], [address] [place] [address] 6 Test Cancelled, orde r entry error [...]
--- OUTSIDE RECORDS SUMMARY | 2024-12-02 14:20 | XMS_ITS | Encounter Summary ---
Author Organization [facility] Address [address] [place] [address] Care Team Providers Care Dye Range Tender Name Role Phone Donya Lewis PA-C Primary Care Provi damir DellMarcello DO Unavailable [phone] Encounter Details Date Type Department Care Team (Late st Contact Info) Description 12/02/[address] [phone] Donya Lewis PA-C [address] [place] [address] Social History Tobacco Use Types Packs/Day Years Used Date Smoking Tobacco: Never Smokeless Tobacco: Never Alcohol Use Standard Drinks/Week Comments Never 0 (1 standard drink = 0.6 oz pur e alcohol) [facility] Utilities Answer Date Recorded In the past 12 months has [employer], gas, oil, or water [email or web address] threatened to shut off services in your home? No 05/24/2024 Social Connection and Isolation Panel [NHANES] A nswer Date Recorded In a typical week, how many times do you talk on the phone with family, friends, or neighbors? Three times a week 05/24/2024 Frequency of Social Gatherin gs with Friends and Family Not on file 05/24/2024 Attends Voodoo Services Not on file 05/24 Active Member [...] any time in the past 12 m [facility], were you homeless or living in a half-way (including now)? No 05/24/2024 Education Answer Date [...] encounter Miscellaneous Notes * Telephone Encounter - Whitney Khan - 12/02/2024 1:46 PM EDT Sent my chart message documented in this encounter Plan of Treatment Upcoming Encounters Date Type Department Care Team (Late st Contact Info) Description 12/08/2024 11:30 AM EDT Office Visit [facility] [address] [place] [address] Donya Lewis PA-C [address] [place] [address] 02/06/2025 11:15 AM EST Consult [facility] [place] [address] [place] [phone] Donya Lewis PA-C [address] [place] [address] Quentin Gan DO [address] [facility] [address] [place] [address] documented as of this encounter Visit Diagnoses Not on filedocumented in this encounter Care Teams Dye Range Tender Relationship Specialty Start Date End Date Donya Lewis PA-C [address] [place] [address] PCP - General Internal Medicine 07/09/23 Marcello Rehman DO [address] [facility] [address] [place] [address] Referring Provider Allergy and Immunology-Scan 07/09/23 Greg Corbett Physician Endocrinology 06/29/23 documented as of this encounter
--- OUTSIDE RECORDS SUMMARY | 2024-12-02 14:20 | XMS_ITS | Clinical Summary ---
Author Organization [facility] Address [address] [address] Phone Care Team Providers Care Enrichment Assistant Name Role Phone Pcp, Not Required Primary Care Provider Unavaila ble Allergies Active Allergy Reactions Criticality Noted Date Comments Grass Pollen 10/05/2020 Ragweed 10/05/2020 Medications budesonide (PULMICORT) 0.5 mg/2 mL nebulizer solution Add one vial to NeilMed saline irrigation and irrigate nasally daily. 60 mL 11 4 Active QVAR REDIHALER 80 mcg/actuation inhaler TAKE 1 PUFF TWICE A DAY NEEDED 5 Active benzonatate (TESSALON) 100 MG capsule Active escitalopram oxalate (LEXAPRO) 10 MG tablet Take 1 tablet by mouth daily. 5 Active TRELEGY ELLIPTA 100-62.5-25 mcg inhalation powder Inhale 1 puff into the lungs daily. 5 Active hydrOXYzine (ATARAX) 25 MG tablet Take 25 mg by mouth nightly at bedtime as needed. 5 Active valACYclovir (VALTREX) 1000 MG tablet Take 2,000 mg by mouth 2 (two) times a day as needed. 4 Active ipratropium (ATROVENT) 21 mcg (0.03 %) nasal spray 2 sprays by Nasal route 2 (two) times a day. 30 mL 12 5 Active budesonide (PULMICORT) 0.5 mg/2 mL nebulizer solution Add one vial to 240ML neilmed sinus rinse and rinse nasally daily 60 mL 4 5 Active Active Problems No known active problems [...] on file Sexual Orientation Not on file Last Filed Vital Signs Vital Sign Reading Time Taken Comments Blood Pressure - - Pulse - - Temperature - - Respiratory Rate - - Oxygen Saturation - - Inhaled Oxygen Concentration - - Weight 60.8 kg (134 lb) 10/05/2020 11:17 AM EDT Height 154.9 cm (5' 1 ) 10/05/2020 11:17 AM EDT Body Mass Index 25.32 10/05/2020 11:17 AM EDT Plan of Treatment Health Maintenance Due Date Last Done Comments Adult Td,Tdap Booster 1957 LIPID PANEL 1957 DEPRESSION SCREENING 1969 HEPATITIS C SCREENING 08/11/1975 MAMMOGRAM 1997 COLOGUARD 2002 COLONOSCOPY 2002 COLORECTAL CANCER SCREENING 2002 FIT TEST 2002 FOBT 2002 SIGMOIDOSCOPY 2002 VIRTUAL COLONOSCOPY 2002 PNEUMOCOCCAL VACCINES (50+ y ears) (1 of 1 - PCV) 08/11/2007 ZOSTER VACCINES (1 of 2) 08/11/2007 OSTEOPOROSIS SCREENING INITI AL (ONE-TIME) 2022 INFLUENZA VACCINE (#1) 2024 COVID-19 VACCINE (2 - 2024-2 6 season) 2024 04/23/2021 RSV VACCINE (1 - 1-dose 75+ series) 2032 SMOKING STATUS SCREENING (On ce After 26 Yrs) Completed 06/29/2024 HEPATITIS A VACCINES Aged Out No long er eligible based on patient's age to complete this topic HIB VACCINES Aged Out No longer eligi ble based on patient's age to complete this topic MENINGOCOCCAL VACCINES (ACWY) Aged Out No longer eligible based on patient's age to complete this topic MENINGOCOCCAL VACCINES (B) Aged Out N o longer eligible based on patient's age to complete this topic Medical Devices Not on file [place] [address] [place] [address] [employer] [facility] [address] [place] [address] [facility] [employer] [facility] Care Teams Enrichment Assistant Relationship Specialty Start Date End Date Pcp, Not Required [address] [place] [address] PCP - General 10/24/19 Additional Source Comments The information contained in this document represents components of the legal health record. It is not the complete legal health record.[facility]
[2024-12-02 14:31] VITALS: BP 158/80; PULSE 83; O2SAT 97; BMI 32.7
--- NOTE | 2024-12-02 14:31 | A.OFFVIS_ITS ---
Vital Signs 12/02/24 14:31 Height 5 ft 1 in Weight 173 lb 1.006 oz BMI 32.7 BP 158/80 H Blood Pressure Location Lt brachial Position Sitting Pulse 83 Pulse Source Pulse Oximeter Pulse Oximetry (%) 97 Oxygen Delivery Method Room Air Intake Visit Reasons: pulmonary nodule Customer Service Correspondence Clerk Required: No Accompanied by: Self / Same As Patient Allergies No Known Allergies Allergy (Verified 12/02/24 14:33) HPI Comments Details: The patient is a 69 year woman with a known history of sarcoidosis diagnosed around 15 years ago in addition to chronic cough. Apparently she was evaluated by [facility] and had a biopsy-proven bout of sarcoidosis. She was placed on steroids at that point. She also follow with a local welt sole layer at [facility]. The patient had CT scan demonstrating nodular densities. She has been on and off prednisone for many years. Now currently off. She developed issues with osteoporosis now she is concerned about her potential bone health. Therefore she is minimizing any steroid therapy. She has had a cough. The cough is been significant with significant spasms resulting in choking. Nonproductive in nature and denies any wheezing. She has been evaluated by Allergy immunology. She was placed on QVAR which appears to be helping. She does not use it frequently. She also has done about she therapy that she does use on a regular basis. Recently she did add budesonide to the therapy by the recommendations of her ENT doctor and her symptoms have improved. She has tried Tessalon Perles which are not very helpful. Cough syrup with codeine is very helpful for her. I did review her PFTs that she had back in 2017 without any evidence of any obstruction. The patient also had a CT scan of the chest September 2022 at [facility] which I compared to her previous CT scan from 2017. She does have evidence of nodular densities in the left lower lobe area which appears to be very similar to previous. In addition to that she does have some minimal airspace disease or scarring in the right upper lobe that has not changed. Has some slight haziness in the basilar areas suggesting some atelectasis. Does not appear to be related to pneumonitis. And is not in the right location for sarcoid. Patient has significant calcifications of her mediastinal hilar lymph nodes which is very likely to be related to her sarcoid history. 09/19/2024 the patient is here for a pulmonary follow-up visit. She has had history of sarcoidosis for many years for pulmonary nodules. Her last CT scan was back in 2019 05 with significant nodular densities and lymphadenopathy. The patient should get another CAT scan at this time. She continues with a cough moderate severity. She does not like to take a lot of medications. Therefore she is okay with some of the cough. The cough medication does help her though codeine cough syrup she knows she needs to take very sparingly and primarily just at nighttime to settle the cough. She can use the Bentson Efrain during the daytime. I did give her a good Rx card in case her insurance does not cover them. Meantime she does have significant sleep issues. She has significant daytime drowsiness with an [place] score elevated 11/24. She has had documented apneic episodes of snoring. The patient needs to have a home sleep study at this time. The patient will follow-up after her CAT scan and sleep study to review the results. 12/02/2024 the patient is here for pulmonary follow-up visit. Overall she has been fair. She had been sick now for about 3 weeks. She did go to an urgent care that was back on November 15 and she did have a chest x-ray there. I do not have those results. She was coughing and having shortness of breath and heaviness in the chest and she was given a course of doxycycline and also cephalosporin therapy for 7 days. The patient was not see any significant improvement still coughing having the hard time with the breathing she started the QVAR 1 inhalation daily and she did not see any significant improvement. She then started the Trelegy that she had available and that this start helping her some. She is still struggling. Subsequently after that she did have a CT scan of the chest actually the day after she was seen at urgent care and this was done at [facility] as far as her follow-up for her sarcoid history. I did personally review the CAT scan with the patient. It looked actually pretty stable. Some potential bronchitis appreciated otherwise no other significant findings stable granulomatous disease. Will go ahead and provide her additional therapies to treat her for a bout of laryngo tracheitis. If the patient is no better if she continues to have chest discomfort she can always call the service if she is not recovering with the medicines I did also provide her with laboratories to have her undergo. Will plan to follow-up in 3-4 months if she has any issues prior to this she can always call for further recommendations. [facility] Medical History (Updated 12/02/24 @ 15:06 by Diomedes Muñoz MD) Chest pain EDUIN (obstructive sleep apnea) Lymphadenopathy, mediastinal Sinusitis Pulmonary nodules Sarcoidosis Surgical History (Updated 05/15/21 @ 11:19 by Bianca Dan CMA) History of cholecystectomy History of tonsillectomy Social History Patient Tobacco Use Status: Never used Tobacco Current occupational status: employed Review of Systems Const Denies fever(s) Eyes Denies change in vision ENT Reports nasal congestion, Reports nasal discharge and Reports post nasal drip Card Denies chest pain and Denies dyspnea on exertion Resp Denies chest congestion, Reports cough, Denies hemoptysis, Denies dyspnea on exertion and Denies wheezing GI Denies abdominal pain Musc Reports no additional complaints Skin/Breast Reports rash Neuro Reports no additional complaints Tyler/Lymph Denies lymphadenopathy Aller/Immun Denies wheezing Physical Exam Vital Signs: Last Vital Signs Pulse 83 12/02/24 14:31 BP 158/80 H 12/02/24 14:31 Pulse Ox 97 12/02/24 14:31 Oxygen Delivery Method Room Air 12/02/24 14:31 BMI result Body Mass Index 32.7 Const General: comfortable HEENT Head: Yes normocephalic Neck Neck: Yes supple Chest Chest palpation & inspection: normal inspection of the chest Resp Effort & Inspection: normal respiratory effort Auscultation: clear to auscultation bilaterally, no crackles, no rales, no rhonchi and no wheezes Cardio Rate: regular rate Rhythm: regular rhythm Heart sounds: S1 normal heart sound present and S2 normal heart sound present GI Palpation (GI): Soft to palpation Skin General skin exam: no rashes or lesions noted Extrem General: Yes no clubbing, cyanosis or edema Assessment & Plan Assessment & Plan (1) Sinusitis: Code(s): J32.9 - Chronic sinusitis, unspecified Category: Medical Qualifiers: Chronicity: chronic Sinusitis location: unspecified location Qualified Code(s): J32.9 - Chronic sinusitis, unspecified (2) Pulmonary nodules: Code(s): R91.8 - Other nonspecific abnormal finding of lung field Category: Medical (3) Sarcoidosis: Comment: calcified mediastinal/hilar lymphadenopathy with evidence of airspace disease Code(s): D86.9 - Sarcoidosis, unspecified Category: Medical (4) Lymphadenopathy, mediastinal: Code(s): R59.0 - Localized enlarged lymph nodes Category: Medical (5) EDUIN (obstructive sleep apnea): Code(s): G47.33 - Obstructive sleep apnea (adult) (pediatric) Category: Medical (6) Chest pain: Code(s): R07.9 - Chest pain, unspecified Category: Medical Plan start Medrol pk start Zpack Bloodwork start Trelegy daily cough medicine F/U 4-6 months Orders: Orders Basic Metabolic Panel 12/02/24 D86.9 - Sarcoidosis, unspecified, R07.9 - Chest pain, unspecified Erythrocyte Sedimentation Rate 12/02/24 D86.9 - Sarcoidosis, unspecified, R07.9 - Chest pain, unspecified Troponin-I High Sensitivity 12/02/24 D86.9 - Sarcoidosis, unspecified, R07.9 - Chest pain, unspecified Angiotensin Converting Enzyme 12/02/24 D86.9 - Sarcoidosis, unspecified, R07.9 - Chest pain, unspecified FINN Reflex Titer and Pattern 12/02/24 D86.9 - Sarcoidosis, unspecified, R07.9 - Chest pain, unspecified Complete Blood Count Auto Diff 12/02/24 D86.9 - Sarcoidosis, unspecified, R07.9 - Chest pain, unspecified D Dimer High Sensitivity 12/02/24 D86.9 - Sarcoidosis, unspecified, R07.9 - Chest pain, unspecified Immunoglobulin E 12/02/24 D86.9 - Sarcoidosis, unspecified, R07.9 - Chest pain, unspecified Medications: New codeine-guaifenesin 10-100 mg/5 mL 10 mL PO Q6H PRN 300 mL 0RF cough 10 days ueesmxekhwe-psciahsuw-yypgbgam 100-62.5-25 mcg (Trelegy Ellipta) 1 inh inhalation DAILY 60 ea 11RF 30 days J44.9 - Chronic obstructive pulmonary disease, unspecified azithromycin 500 mg PO DAILY 5 tabs 0RF 5 days methylprednisolone (Medrol (Misael)) PO PER PKG DIR 21 ea 0RF 6 days Coding Level of Care Code Est Pt Level 4 (56325) Complex EM visit Add On G2211 Diagnoses Chronic sinusitis, unspecified location J32.9 Chronicity: chronic Sinusitis location: unspecified location Pulmonary nodules R91.8 Sarcoidosis D86.9 Lymphadenopathy, mediastinal R59.0 EDUIN (obstructive sleep apnea) G47.33 Chest pain R07.9 Time Spent (min) 17
== END 2024-12-02 15:07 | disposition home or self-care (01) ==
LOC: HO.HPS 14:13
PROVIDERS: PCP Family Medicine; Visit Provider Hospitalist
DX: J32.9 Chronic sinusitis, unspecified (principal); R91.8 Other nonspecific abnormal finding of lung field; D86.9 Sarcoidosis, unspecified; R59.0 Localized enlarged lymph nodes; G47.33 Obstructive sleep apnea (adult) (pediatric); R07.9 Chest pain, unspecified
CPT/HCPCS: 99214; G2211

== ENCOUNTER → 2024-12-02 14:12 | Outpatient (BNVA) | payer MEDICARE, SELFPAY | PROVIDERS: PCP Family Medicine; Visit Provider Hospitalist | DX: G47.33 Obstructive sleep apnea (adult) (pediatric) (principal); R91.8 Other nonspecific abnormal finding of lung field; J32.9 Chronic sinusitis, unspecified; D86.9 Sarcoidosis, unspecified; R07.9 Chest pain, unspecified; R59.0 Localized enlarged lymph nodes | CPT/HCPCS: 99212 ==